=== PATIENT | female | born 1950 | race Caucasian/White ===

== ENCOUNTER 2018-01-05 09:19 | Emergency (ER) | payer MEDICARE, OTHER ==
[~2018-01-05] VITALS: Ht 160 cm; Wt 104.3 kg
[2018-01-05] MEDS ORDERED: ONDANSETRON 4 MG/2 ML (SDV) Z0FRAN IVP ONE (09:30)
--- NOTE | 2018-01-05 09:36 | ED Lower Extremity ---
General Chief Complaint: Lower Extremity Stated Complaint: R KNEECAP DISLOCATED Source: patient Exam Limitations: no limitations History of Present Illness Date Seen by Provider: Jan 05, 2018 Time Seen by Provider: 09:32 Initial Comments This 67-year-old white female presents after she inadvertently dislocated her right patella while she was moving on her bed this morning. Upon master dyer arrival the patient on being moved onto the cart spontaneously reduced the lateral superior displaced patella. The patient originally had severe sharp pain with a dislocation. Upon the spontaneous reduction the patient has had no further pain. Past medical history includes a previous ORIF of the right knee for a fracture approximately 20 years ago. Although the patient relates that the patella has felt unstable intermittently in the past it has never spontaneously dislocated. Allergies and Home Medications Allergies Coded Allergies: No Known Drug Allergies (Unverified , 01/05/18) Patient Home Medication List Home Medication List Reviewed: Yes Review of Systems Constitutional: No chills EENTM: No ear pain Respiratory: No cough Cardiovascular: No chest pain Gastrointestinal: No abdominal pain; nausea, vomiting (patient experienced nausea and some dry heaves after she received fentanyl in the field by the paramedics.) Genitourinary: no symptoms reported : No Musculoskeletal: No back pain; joint pain (self-limited right knee pain following that dislocation. The patient is now pain free following a spontaneous reduction of the right knee.) Skin: no symptoms reported Psychiatric/Neurological: No Symptoms Reported Past Eprzuou-Ywaxqo-Cneryx Hx Past Med/Social Hx: Reviewed Nursing Past Med/Soc Hx Patient Social History Alcohol Use: Denies Use Recreational Drug Use: No Smoking Status: Former Smoker Recent Foreign Travel: No Contact w/Someone Who Travel: No Recent Hopitalizations: No Immunizations Up To Date Tetanus Booster (TDap): Unknown PED Vaccines UTD: Yes Seasonal Allergies Seasonal Allergies: No Past Medical History Surgeries: Yes Appendectomy, Orthopedic Respiratory: No Cardiac: Yes (tachycardia) Hypertension Neurological: No Genitourinary: No Gastrointestinal: No Musculoskeletal: No Endocrine: Yes Hypothyroidsim, Diabetes, Non-Insulin dep HEENT: No Cancer: No Psychosocial: No Integumentary: No Physical Exam Vital Signs Vital Signs - First Documented 01/05/18 09:20 Temp 96.0 Pulse 87 Resp 18 B/P (MAP) 156/91 (112) Pulse Ox 94 O2 Delivery Room Air Capillary Refill : Height, Weight, BMI Height: '" Weight: lbs. oz. kg; BMI Method: General Appearance: WD/WN, no apparent distress, mild distress HEENT: normal ENT inspection Neck: full range of motion, normal inspection Cardiovascular: normal peripheral pulses, regular rate, rhythm Respiratory: chest non-tender, lungs clear, normal breath sounds Gastrointestinal: normal bowel sounds, soft Hips: bilateral hip non-tender, bilateral hip normal inspection Legs: bilateral leg non-tender, bilateral leg normal inspection Knees: bilateral knee non-tender, bilateral knee normal inspection Ankles: bilateral ankle non-tender, bilateral ankle normal inspection Neurologic/Tendon: normal sensation, normal motor functions, normal tendon functions Neurologic/Psychiatric: no motor/sensory deficits, alert, normal mood/affect, oriented x 3 Skin: normal color, warm/dry Progress/Results/Core Measures Results/Orders My Orders Orders - ONDINA LEA MD Ondansetron Injection (Zofran Injectio (01/05/18 09:30) Knee, Left, 3 Views (01/05/18 09:31) Knee, Right, 3 Views (01/05/18 09:40) Medications Given in ED Current Medications Medications Dose Ordered Sig/Dario Route Start Time Stop Time Status Last Admin Dose Admin Ondansetron HCl 4 mg ONCE ONCE IVP 01/05/18 09:30 01/05/18 09:32 DC 01/05/18 09:38 4 MG Vital Signs/I&O 01/05/18 09:20 Temp 96.0 Pulse 87 Resp 18 B/P (MAP) 156/91 (112) Pulse Ox 94 O2 Delivery Room Air Progress Progress Note : Time: 09:54 Progress Note My interpretation the patient's 3 view radiograph of the right knee as that there was no evidence of fracture or dislocation. Knee immobilizer was applied. Patient was able weight-bear without discomfort. I discussed the diagnosis with the patient and her . I recommended follow-up with her primary care physician or orthopedics on Sunday for further evaluation and care. Tylenol was recommended for pain. Departure Impression Primary Impression: Closed patellar dislocation Qualified Codes: S83.004A - Unspecified dislocation of right patella, initial encounter Disposition: 01 HOME, SELF-CARE Condition: Improved Departure-Patient Inst. Decision time for Depature: 09:55 Referrals: ANTONIO MAY MD NO,LOCAL PHYSICIAN (PCP) Primary Care Physician Patient Instructions: Knee Pain (DC) Add. Discharge Instructions: Follow-up with your doctor or orthopedics next week. Knee immobilizer for protection. Tylenol for pain. Return if any problems or questions. All discharge instructions reviewed with patient and/or family. Voiced understanding. ONDINA LEA MD Jan 05, 2018 09:36
[2018-01-05 10:09] VITALS: BP 156/91
--- NOTE | 2018-01-05 10:15 | Diagnostic Imaging Report ---
INDICATION: Fell dislocating patella felt a relocation while being moved into the ambulance. EXAMINATION: Right knee 01/05/2018 COMPARISON: None. FINDINGS: 4 views of the knee Minimal joint fluid is noted within the suprapatellar joint space. Scattered sclerotic areas within the proximal tibia, nonspecific, possibly multiple bone islands. A metastatic process is less likely given location but correlation with history recommended. No fractures or dislocations although the patella is slightly laterally subluxed. IMPRESSION: 1. Chronic findings, as described, with densities in the proximal tibia, nonspecific see above discussion. 2. No current dislocation is appreciated although on the dedicated frontal view, the patella is slightly laterally subluxed. Correlate clinically. 3. Minimal joint fluid. Dictated by: Dictated on workstation # [id number]
== END 2018-01-05 10:14 | disposition home or self-care (01) ==
LOC: ER 09:24
DX: S83.004A Unspecified dislocation of right patella, initial encounter (principal); I10 Essential (primary) hypertension; E03.9 Hypothyroidism, unspecified; E11.9 Type 2 diabetes mellitus without complications; Z87.891 Personal history of nicotine dependence; Z90.49 Acquired absence of other specified parts of digestive tract; X50.1XXA Overexertion from prolonged static or awkward postures, initial encounter
CPT/HCPCS: 73562; 96374